=== PATIENT | male | born 1930 | race African-American/Black ===

== ENCOUNTER 2017-12-30 09:20 | Emergency (ER) | payer MEDICARE, MEDICAID ==
[~2017-12-30] VITALS: Ht 170.2 cm; Wt 82.0 kg
[~2017-12-30 09:20] MED LIST: AMLO10TA4 PO; ASPI-1159 PO; ATEN-42 PO; CLOP75TA33 PO; DONE5TAB7 PO; DULO60CA44 PO; FERR-63 PO; GABA-531 PO; LATA2.5D2 EACHEYE; LISI40TA4 PO; MEMA10TA2 PO; NIFE30TA94 PO; TIMO15DR12 EACHEYE
[2017-12-30 10:53] LABS: BASOPHILS % 0.5 % (0.0-2.0); HEMOGLOBIN. 12.9 g/dL (14.0-18.0); MEAN CORPUSCULAR HEMOGLOBIN 27.4 pg (28.0-32.0); MEAN CORPUSCULAR VOLUME 84.9 fL (80.0-94.0); MEAN PLATELET VOLUME 9.8 fl (7.4-10.4); MONOCYTES % 13.5 % (2.0-8.0); PLATELET 128 x1000/uL (130-400); RED CELL DISTRIBUTION WIDTH 20.3 % (11.6-14.6)
[2017-12-30 10:55] LABS: CHLORIDE 110 mEq/L (98-107)
[2017-12-30 10:57] LABS: INR 1.1; PARTIAL THROMBOPLASTIN TIME 41.1 sec (23.4-31.0); PROTHROMBIN TIME 11.2 sec (9.4-11.6)
[2017-12-30] MEDS ORDERED: LIDOCAINE HCL 1% 20ML VIAL (Pyxis) INJ ONE (13:56)
[2017-12-30] MEDS ORDERED: SODIUM BICARBONATE 4% (2.4MEQ) 5ML VIAL IV ONE (13:56)
[2017-12-30] MEDS ORDERED: IOHEXOL-300 50 ML BOTTLE IV ONE (13:56)
[2017-12-30] MEDS ORDERED: LIDOCAINE HCL 2% JELLY 5ML ONE (13:56)
[2017-12-30 16:27] VITALS: BP 155/71
== END 2017-12-30 16:35 | disposition home or self-care (01) ==
LOC: ER 09:37
DX: K94.23 Gastrostomy malfunction (principal); Y82.8 Other medical devices associated with adverse incidents; Y92.89 Other specified places as the place of occurrence of the external cause; I12.9 Hypertensive chronic kidney disease with stage 1 through stage 4 chronic kidney disease, or unspecified chronic kidney disease; E11.22 Type 2 diabetes mellitus with diabetic chronic kidney disease; N18.9 Chronic kidney disease, unspecified
CPT/HCPCS: 36415; 49450; 80048; 85025; 85610; 85730; 86850; 86900; 86901; 99285; C1769; J3490; J7040; Q9967; 43760